=== PATIENT | male | born 2000 | race American Indian/Alaskan Native ===

== ENCOUNTER 2020-12-12 22:07 | Emergency (ER) | payer OTHER ==
[2020-12-13] MEDS ORDERED: FAMOTIDINE 20 MG TAB PO ONE (00:09)
[2020-12-13] MEDS ORDERED: ONDANSETRON 4 MG ODT TAB PO ONE (00:09)
[2020-12-13 01:27] VITALS: BP 117/74
--- NOTE | 2020-12-13 01:53 | XRay Report ---
CHEST 1 VIEW 12/13/2020 12:27 AM INDICATION / CLINICAL INFORMATION: cough. COMPARISON: None available. FINDINGS: SUPPORT DEVICES: None. HEART / MEDIASTINUM: No significant abnormality. LUNGS / PLEURA: No significant pulmonary or pleural abnormality. No pneumothorax. ADDITIONAL FINDINGS: No significant additional findings. IMPRESSION: 1. No acute findings. Signer Name: Ray Souza MD Signed: 12/13/2020 1:48 AM Workstation Name: [id number]
--- NOTE | 2020-12-13 02:20 | Emergency Department Report ---
- General Chief Complaint: Nausea/Vomiting/Diarrhea Stated Complaint: NAUSEA/BODYACHES/SOB/CONGESTION Source: patient Mode of arrival: Ambulatory Limitations: No Limitations - History of Present Illness Initial Comments: Patient is a 20-year-old -[place] male with no past medical history who presents to the ED with complaint of acute onset persistent nasal and sinus congestion, persistent dry cough, intermittent nausea and vomiting for the last 2 days. Patient states that he has not been able to sleep because of worsening symptoms. Patient states that the last time he had nausea and vomiting was about 24 hours ago and that he has been eating food with no difficulties. Patient denies dizziness, syncope, fever, chills, abdominal pain, diarrhea, dysuria, urinary frequency and urgency, sore throat or change in vision, neck pain, seizures or back pain MD Complaint: cough, rhinorrhea, nasal congestion, sinus pain, other (nasal and sinus congestion) -: Sudden, days(s) (2) Severity: moderate Severity scale (0 -10): 3 Quality: dull, aching Consistency: constant Improves With: nothing Worsens With: nothing Context: sick contacts Associated Symptoms: denies other symptoms, myalgias, headache, rhinorrhea, nasal congestion, cough, nausea, vomiting. denies: fever, chills, diaphoresis, sore throat, stiff neck, chest pain, shortness of breath, diarrhea, dysuria, rash, confusion, right sweats, weight loss, hoarseness, ear pain Treatments Prior to Arrival: none - Related Data Previous Rx's Medication Instructions Recorded Last Taken Type Benzonatate [Tessalon Perles] 100 mg PO Q8HR #30 capsule 12/13/20 Unknown Rx Cetirizine HCl [Zyrtec 10mg tab] 10 mg PO DAILY #30 tablet 12/13/20 Unknown Rx Famotidine [Pepcid] 20 mg PO BID #30 tablet 12/13/20 Unknown Rx Ondansetron [Zofran Odt] 4 mg PO Q6HR PRN #15 tab.rapdis 12/13/20 Unknown Rx Allergies Allergy/AdvReac Type Severity Reaction Status Date / Time No Known Allergies Allergy Verified 12/13/20 01:27 ED Review of Systems ROS: Stated complaint: NAUSEA/BODYACHES/SOB/CONGESTION Other details as noted in HPI Constitutional: denies: chills, fever Eyes: denies: eye pain, eye discharge, vision change ENT: congestion, other (Frontal sinus pressure and headache). denies: ear pain, throat pain Respiratory: cough. denies: orthopnea, shortness of breath, SOB with exertion, SOB at rest, wheezing Cardiovascular: denies: chest pain, palpitations, dyspnea on exertion, edema, syncope, paroxysmal nocturnal dyspnea Endocrine: no symptoms reported Gastrointestinal: nausea, vomiting. denies: abdominal pain, diarrhea, constipation, melena Genitourinary: denies: urgency, dysuria Musculoskeletal: arthralgia, myalgia. denies: back pain, joint swelling Skin: denies: rash, lesions Neurological: headache. denies: weakness, paresthesias Psychiatric: denies: anxiety, depression Hematological/Lymphatic: denies: easy bleeding, easy bruising ED Past Medical Hx - Past Medical History Previous Medical History?: No - Surgical History Past Surgical History?: Yes Additional Surgical History: I&D - Social History Smoking Status: Never Smoker Substance Use Type: None - Medications Home Medications: Home Medications Medication Instructions Recorded Confirmed Last Taken Type Benzonatate [Tessalon Perles] 100 mg PO Q8HR #30 capsule 12/13/20 Unknown Rx Cetirizine HCl [Zyrtec 10mg tab] 10 mg PO DAILY #30 tablet 12/13/20 Unknown Rx Famotidine [Pepcid] 20 mg PO BID #30 tablet 12/13/20 Unknown Rx Ondansetron [Zofran Odt] 4 mg PO Q6HR PRN #15 tab.rapdis 12/13/20 Unknown Rx ED Physical Exam - General Limitations: No Limitations General appearance: alert, in no apparent distress - Head Head exam: Present: atraumatic, normocephalic, normal inspection - Eye Eye exam: Present: normal appearance, PERRL, EOMI Pupils: Present: normal accommodation - ENT ENT exam: Present: normal orophraynx, mucous membranes moist, TM's normal bilaterally, normal external ear exam, other (Grossly congested nasal passages; palpable frontal sinus tenderness) - Neck Neck exam: Present: normal inspection, full ROM - Respiratory Respiratory exam: Present: normal lung sounds bilaterally. Absent: respiratory distress, wheezes, rales, stridor, chest wall tenderness, accessory muscle use, decreased breath sounds, prolonged expiratory - Cardiovascular Cardiovascular Exam: Present: regular rate, normal rhythm, normal heart sounds. Absent: systolic murmur, diastolic murmur, rubs, gallop - GI/Abdominal GI/Abdominal exam: Present: soft, normal bowel sounds. Absent: tenderness, guarding, hyperactive bowel sounds, hypoactive bowel sounds, organomegaly - Extremities Exam Extremities exam: Present: normal inspection, full ROM, normal capillary refill - Back Exam Back exam: Present: normal inspection, full ROM. Absent: tenderness, CVA tenderness (R), CVA tenderness (L), muscle spasm, paraspinal tenderness, vertebral tenderness - Neurological Exam Neurological exam: Present: alert, oriented X3, CN II-XII intact, normal gait, reflexes normal - Psychiatric Psychiatric exam: Present: normal affect, normal mood - Skin Skin exam: Present: warm, dry, intact, normal color. Absent: rash ED Course Vital Signs 12/13/20 01:24 Temperature 98.0 F Pulse Rate 74 Respiratory 16 Rate Blood Pressure 117/74 O2 Sat by Pulse 99 Oximetry ED Medical Decision Making - Radiology Data Radiology results: report reviewed, image reviewed Findings [address] [address] XRay Report Signed Patient: SIMONE ULRICH MR#: [id number] : 2000 Acct:[id number] Age/Sex: 20 / M ADM Date: 12/12/20 Loc: ED Attending Dr: Ordering Physician: MURTAZA AUGUSTE Date of Service: 12/13/20 Procedure(s): XR chest 1V ap Accession Number(s): [id number] cc: MURTAZA AUGUSTE Fluoro Time In Minutes: CHEST 1 VIEW 12/13/2020 12:27 AM INDICATION / CLINICAL INFORMATION: cough. COMPARISON: None available. FINDINGS: SUPPORT DEVICES: None. HEART / MEDIASTINUM: No significant abnormality. LUNGS / PLEURA: No significant pulmonary or pleural abnormality. No pneumot horax. ADDITIONAL FINDINGS: No significant additional findings. IMPRESSION: 1. No acute findings. Signer Name: Ray Souza MD Signed: 12/13/2020 1:48 AM Workstation Name: [id number] Transcribed By: SS Dictated By: Ray Souza MD Electronically Authenticated By: Ray Souza MD Signed Date/Time: 12/13/20147 DD/ 7 TD/TT: - Medical Decision Making This is a 20-year-old -[place] male with no past medical history who presents to the ED with complaint of acute onset persistent nasal and sinus congestion, persistent dry cough, intermittent nausea and vomiting for the last 2 days. Patient states that he has not been able to sleep because of worsening symptoms. Patient states that the last time he had nausea and vomiting was about 24 hours ago and that he has been eating food with no difficulties. In the ED, patient is alert and oriented x3 and is not in any distress. Chest x- ray shows no acute cardiopulmonary abnormalities or pneumonitis. Patient was treated in the ED for nausea and vomiting and also given oral steroids. Patient was discharged home on medications and advised to follow-up with his primary care physician in 3 to 5 days for reevaluation or return to the ED immediately if symptoms get worse. - Differential Diagnosis Bronchitis; URI; sinusitis; viral gastroenteritis Critical care attestation.: If time is entered above; I have spent that time in minutes in the direct care of this critically ill patient, excluding procedure time. ED Disposition Clinical Impression: Acute upper respiratory infection, Nausea and vomiting in adult patient Acute bronchitis Qualifiers: Bronchitis organism: other organism Qualified Code(s): J20.8 - Acute bronchitis due to other specified organisms Disposition: DC-01 TO HOME OR SELFCARE Is pt being admited?: No Does the pt Need Aspirin: No Condition: Stable Instructions: Acute Bronchitis (ED), Viral Respiratory Infection, [id number], Acute Bronchitis, Adult, [id number], Nausea and Vomiting, Adult, [id number] Additional Instructions: Chest x-ray shows no acute cardiopulmonary abnormalities. Your symptoms are likely viral given the duration of time these have lasted. Therefore take medication with food, drink plenty of fluids and follow-up with your primary care physician in 5 to 7 days for reevaluation. Return to the ED immediately if symptoms get worse. Prescriptions: Famotidine [Pepcid] 20 mg PO BID #30 tablet Benzonatate [Tessalon Perles] 100 mg PO Q8HR #30 capsule Ondansetron [Zofran Odt] 4 mg PO Q6HR PRN #15 tab.rapdis PRN Reason: Nausea Cetirizine HCl [Zyrtec 10mg tab] 10 mg PO DAILY #30 tablet Referrals: [facility] [Provider Group] - 3-5 Days Time of Disposition: 02:24 Print Language: BULGARIAN
== END 2020-12-13 02:35 | disposition home or self-care (01) ==
LOC: ED 22:07
DX: J20.9 Acute bronchitis, unspecified (principal); J06.9 Acute upper respiratory infection, unspecified; R11.2 Nausea with vomiting, unspecified; Z98.890 Other specified postprocedural states; Z79.899 Other long term (current) drug therapy
CPT/HCPCS: 71045; Q0162